=== PATIENT | male | born 1980 | race Caucasian/White ===

== ENCOUNTER 2020-05-28 18:12 | Emergency (ER) | payer OTHER, SELFPAY ==
--- NOTE | ~2020-05-28 | CT_ITS ---
EXAMINATION: CT abdomen pelvis wo con DATE: 05/28/2020 19:16 INDICATION: Right flank pain. TECHNIQUE: Computed tomography (CT) of the abdomen and pelvis was performed without intravenous contr ast. Automated exposure control and iterative reconstruction technique were employed. The dose-length product was 183.63 mGy-cm. COMPARISON: None. FINDINGS: The visualized portions of the lung bases demonstrate mild atelectasis on the right. No ple ural effusion. The heart size is normal. No pericardial effusion. The liver, gallbladder, spleen, [place], and adrenal glands are normal. There are 4 mm and 1 mm stones in right kidney. There is modera te right hydronephrosis and hydroureter. There is a 4 mm stone at right ureterovesicular junction. Th ere is severe atrophy of left kidney. There are no dilated loops of bowel. The appendix is normal. Th ere are no pathologically enlarged lymph nodes. There is no free intraperitoneal fluid. There are thanh ign bone islands in the pelvis and proximal right femur. There is severe lumbar spondylosis. IMPRESSION: 1. 4 mm stone at right ureterovesicular junction with moderate right hydronephrosis and hydroureter. 2. Nonobstructing right kidney stones. 3. Severe left kidney atrophy. Reviewed, dictated and finalized at location A. IMPRESSION: 1. 4 mm stone at right ureterovesicular junction with moderate right hydronephr osis and hydroureter. 2. Nonobstructing right kidney stones. 3. Severe left kidney atrophy.
[2020-05-28 18:15] VITALS: BP 162/86; PULSE 56; RESP 16; TEMP 36.6; O2SAT 100
--- NOTE | 2020-05-28 18:26 | ED.ABDPAIN ---
HPI - Abdominal Pain General Chief Complaint: Abdominal Pain Stated Complaint: ABD pain Time Seen by Provider: 05/28/20 18:26 History of Present Illness HPI narrative: 59-year-old male patient walks into the ER screaming with abdominal pain which he states started about 40 minutes prior to arrival here. The patient localizes the pain to the right flank area and states that it is not radiating. The patient comes in bouts of full intensity . there is no associated nausea or vomiting. The patient is not offering any further history because of the severity of the pain. He states that he is usually in good health and takes no routine medications. Related Data Allergies Allergy/AdvReac Type Severity Reaction Status Date / Time Penicillins Allergy Intermediate Verified 12/23/12 09:35 tramadol Allergy Intermediate Verified 12/23/12 09:35 Review of Systems Review of Systems: All systems reviewed & are unremarkable except as noted in HPI and below PMFSH Past Medical History Medical History (Updated 05/28/20 @ 19:42 by Johanna Garcia MD) No pertinent past medical history Surgical History Surgical History (Updated 05/28/20 @ 19:02 by Johanna Garcia MD) No pertinent past surgical history Social History Social History (Updated 05/28/20 @ 19:03 by Johanna Garcia MD) Smoking packs per day: 1 Smoking cigarettes per day: 20.0 Smoking status: Current every day smoker Alcohol intake: never Substance use: never Living arrangements: with family Exam Const: General: alert Orientation/consciousness: patient oriented x3 Other: Moderate distress from pain. HENMT: Head: normal to inspection Eyes: Pupils: Equal, round and reactive pupils present EOM: EOMs intact bilaterally Resp: Effort & Inspection: normal respiratory effort Auscultation: clear to auscultation bilaterally GI: GI Palp: Yes Soft to palpation and Yes Tenderness to palpation present (GI) (Right flank) : General: Yes CVA tenderness (Right) Skin: General skin exam: normal color Neuro: General: patient oriented x3 and no focal motor deficits Speech: normal speech Gait exam (Neuro): Normal gait present Psych: Affect: Anxious affect present Course Course Emergency Course: patient is resting at this time. He is aware of the CT and the blood test results and discharge plans. The patient does have a 4 mm calculus in the right UV junction area with moderate right hydronephrosis and hydroureter. He has not given us any urine sample. His white cell count is normal without any evidence of elevation on shift. Vital Signs Vital signs: Vital Signs Temperature 36.6 C 05/28/20 18:15 Pulse Rate 56 L 05/28/20 18:15 Respiratory Rate 16 05/28/20 18:15 Blood Pressure 162/86 H 05/28/20 18:15 Pulse Oximetry 100 05/28/20 18:15 Temperature 36.6 C 05/28/20 18:15 Pulse Rate 56 L 05/28/20 18:15 Respiratory Rate 16 05/28/20 18:15 Blood Pressure 162/86 H 05/28/20 18:15 Pulse Oximetry 100 05/28/20 18:15 MDM - Abdominal Pain Lab Data Result diagrams: 05/28/20 19:11 05/28/20 19:11 Labs: Lab Results 05/28/20 05/28/20 Range/Units 19:11 19:11 WBC 7.7 (4.8-10.8) K/mm3 RBC 5.31 (4.70-6.10) M/mm3 Hgb 15.5 (14.0-18.0) g/dL Hct 46.7 (40.0-54.0) % MCV 87.9 (78.0-102.0) fL MCH 29.2 (27.0-31.0) pg MCHC 33.2 (32.0-36.0) g/dL RDW 11.7 (11.6-14.4) % Plt Count 153 (150-420) K/mm3 MPV 11.0 (8.7-11.0) fl Immature Gran % (Auto) 0.3 H (0.0-0.0) % Neut % (Auto) 68.6 (50.0-70.0) % Lymph % (Auto) 23.8 (18.0-42.0) % Wells % (Auto) 4.9 (2.0-11.0) % Eos % (Auto) 2.1 (1.0-6.0) % Baso % (Auto) 0.3 (0.0-1.0) % Lymph # (Auto) 1.83 (1.10-4.50) K/mm3 Wells # (Auto) 0.38 (0.10-0.90) K/mm3 Eos # (Auto) 0.16 (0.02-0.50) K/mm3 Baso # (Auto) 0.02 (0.00-0.10) K/mm3 Abs Immat Gran (auto) 0.02 H (0.00-0.00) K/mm3 Absolute Neuts (auto) 5.
[2020-05-28] MEDS: KETOROLAC 30 MG/ML VIAL (*BKC) IV PUSH (18:34)
[2020-05-28 19:15] LABS: Basophils Absolute Auto 0.02 K/mm3 (0.00-0.10); Basophils Percent Auto 0.3 % (0.0-1.0); Eosinophils Absolute Auto 0.16 K/mm3 (0.02-0.50); Eosinophils Percent Auto 2.1 % (1.0-6.0); Hematocrit 46.7 % (40.0-54.0); Hemoglobin 15.5 g/dL (14.0-18.0); Immature Granulocyte Absolute 0.02 K/mm3 (0.00-0.00); Immature Granulocyte Percent A 0.3 % (0.0-0.0); Lymphocytes Absolute Auto 1.83 K/mm3 (1.10-4.50); Lymphocytes Percent Auto 23.8 % (18.0-42.0); Mean Corpuscular HGB Conc 33.2 g/dL (32.0-36.0); Mean Corpuscular Hemoglobin 29.2 pg (27.0-31.0); Mean Corpuscular Volume 87.9 fL (78.0-102.0); Monocytes Absolute Auto 0.38 K/mm3 (0.10-0.90); Monocytes Percent Auto 4.9 % (2.0-11.0); Neutrophils Absolute Auto 5.3 K/mm3 (1.7-7.2); Neutrophils Percent Auto 68.6 % (50.0-70.0); Platelet Count Result 153 K/mm3 (150-420); Red Blood Count 5.31 M/mm3 (4.70-6.10); Red Cell Distribution Width 11.7 % (11.6-14.4); White Blood Count 7.7 K/mm3 (4.8-10.8)
[2020-05-28 19:27] LABS: Blood Urea Nitrogen 14 mg/dL (7-18); Calcium 8.7 mg/dL (8.5-10.1); Carbon Dioxide 35 mmol/L (21-32); Estimated CRCL calculation 69 ml/min; Estimated Glomerular Filt Rate 55; Glucose 100 mg/dL (70-99)
[2020-05-28 19:39] LABS: Anion Gap 5.2 mmol/L (7-16); Chloride 105 mmol/L (98-108); Osmolality Calculated 292 mOsm/kg (285-295); Potassium 4.2 mmol/L (3.5-5.1); Sodium 141 mmol/L (136-145)
[2020-05-28 20:00] VITALS: RESP 15; O2SAT 100
== END 2020-05-28 20:02 | disposition home or self-care (01) ==
PROVIDERS: Emergency Provider Emergency Medicine
DX: N20.0 Calculus of kidney (principal)
CPT/HCPCS: 36415; 74176; 80048; 85025; 96374; 99283; 99284; A9270; J1885

== ENCOUNTER 2021-03-28 02:42 | Emergency (ER) | payer OTHER, SELFPAY ==
--- NOTE | ~2021-03-28 | CT_ITS ---
EXAMINATION: CT abdomen pelvis wo con DATE: 03/28/2021 03:36 INDICATION: Left flank pain. Kidney stone. TECHNIQUE: Computed tomography (CT) of the abdomen and pelvis was performed without intravenous contr ast. Automated exposure control and iterative reconstruction technique were employed. The dose-length product was 195.71 mGy-cm. COMPARISON: CT abdomen and pelvis 05/28/2020 FINDINGS: The visualized portions of the lung bases demonstrate minimal atelectasis. No pleural effus ion. The heart size is normal. No pericardial effusion. The liver, gallbladder, spleen, pancreas, and adrenal glands are normal. There is severe atrophy of left kidney. There is compensatory hypertrophy of right kidney. There is a 5 mm stone in right kidney. There are two 1 mm stones in right kidney. T here are no dilated loops of bowel. The appendix is normal. There are no pathologically enlarged lymp h nodes. There is no free intraperitoneal fluid. There is a benign bone island in right pelvis. There is severe lumbar spondylosis. IMPRESSION: 1. Nonobstructing right kidney stones. 2. Severe left kidney atrophy. Reviewed, dictated and finalized at location A.
[2021-03-28 02:50] VITALS: BP 107/84; PULSE 81; RESP 20; TEMP 36.3; O2SAT 97
--- NOTE | 2021-03-28 02:53 | ED.ABDPAIN ---
HPI - Abdominal Pain General Source: patient Mode of arrival: ambulatory Limitations: no limitations History of Present Illness HPI narrative: Patient comes in with left flank pain moderately severe, sharp, ongoing he says for the last week. This has not been made better with ibuprofen at home. No fever, no chills. no known precipitating factors. no modifying factors, no other associated signs or symptoms. MD elicited complaint: abdominal pain and flank pain Pertinent past history: kidney stones Onset (ago): day(s) Pain Consistency: constant Location: L flank Severity: severe Quality: stabbing Exacerbating factors: nothing Relieving factors: nothing Associated symptoms: denies other symptoms Treatments prior to arrival: NSAIDs Related Data Home Medications Medication Instructions Recorded Confirmed No Home Medications 03/28/21 03/28/21 Allergies Allergy/AdvReac Type Severity Reaction Status Date / Time Penicillins Allergy Intermediate Verified 12/23/12 09:35 tramadol Allergy Intermediate Verified 12/23/12 09:35 Review of Systems Constitutional: Constitutional: Reports no additional constitutional complaints Eyes: Eyes: Reports no additional eye complaints ENT: Reports system reviewed and no additional complaints, except as documented Cardiovascular: Cardiovascular: Reports no additional cardiovascular complaints Respiratory: Respiratory: Reports no additional respiratory complaints Gastrointestinal: Gastrointestinal: Reports no additional gastrointestinal complaints Genitourinary: Genitourinary: Reports no additional male genitourinary complaints Musculoskeletal: Musculoskeletal: Reports no additional musculoskeletal complaints Integumentary/Breasts: Skin/Breast: Reports system reviewed and no additional complaints, except as docu Neurologic: Reports system reviewed and no additional complaints, except as documented Psychiatric: Psychiatric: Reports no additional psychiatric complaints Endocrine: Endocrine: Reports no additional endocrine complaints Hematologic/Lymphatic: Hematologic/Lymphatic: Reports no additional hematologic/lymphatic complaints Allergic/Immunologic: Allergic/Immunologic: Reports no additional allergic/immunologic complaints [facility] Past Medical History Medical History No pertinent past medical history Surgical History Surgical History No pertinent past surgical history Family History Family History (Updated 03/30/21 @ 03:21 by Charles Wood MD) Other Family history non-contributory Social History Social History Smoking packs per day: 1 Smoking cigarettes per day: 20.0 Smoking status: Current every day smoker Alcohol intake: never Substance use: never Exam Const: General: no acute distress Orientation/consciousness: patient oriented x3 HENMT: Head: normal to inspection Ears: external ears normal General nose exam: Normal external nose present Mouth: Yes Normal oral and palatal mucosa present Throat: posterior oropharynx normal Eyes: Conjunctivae: conjunctivae normal Neck: Neck: normal visual inspection Chest: Chest palpation & inspection: normal inspection of the chest Resp: Effort & Inspection: normal respiratory effort Auscultation: clear to auscultation bilaterally Cardio: Rate: regular rate Rhythm: regular rhythm GI: GI Palp: Yes Soft to palpation (nontender) Back/Spine/Pelvis: Back: no CVA tenderness Neuro: General: patient oriented x3 and moves all extremities Extrem: General: normal to inspection Psych: Appearance: grossly normal Mental Status: mental status grossly normal Thought content: Yes Normal thought content present Course Course Emergency Course: Labs and a CT scan were done to evaluate his left flank pain. CT scan was unremarkable. Labs were also unrem
[2021-03-28 03:07] LABS: Add Urine Microscopic? NO; Appearance Urine Clear (Clear); Bilirubin Urine Negative (Negative); Blood Urine Negative (Negative); Color Urine Yellow (Yellow); Glucose Urine UA Negative (Negative); Ketones Urine Negative (Negative); Leukocyte Esterase Ur Negative LEU/UL (Negative); Nitrate Urine Negative (Negative); Protein Urine Negative (Negative); Urobilinogen Urine 0.2 mg/dL (0.2-1.0)
[2021-03-28 03:08] LABS: Basophils Absolute Auto 0.02 K/mm3 (0.00-0.10); Basophils Percent Auto 0.3 % (0.0-1.0); Eosinophils Absolute Auto 0.26 K/mm3 (0.02-0.50); Eosinophils Percent Auto 3.4 % (1.0-6.0); Hematocrit 43.1 % (40.0-54.0); Hemoglobin 14.1 g/dL (14.0-18.0); Immature Granulocyte Absolute 0.01 K/mm3 (0.00-0.00); Immature Granulocyte Percent A 0.1 % (0.0-0.0); Lymphocytes Absolute Auto 2.54 K/mm3 (1.10-4.50); Mean Corpuscular HGB Conc 32.7 g/dL (32.0-36.0); Mean Corpuscular Volume 88.5 fL (78.0-102.0); Monocytes Absolute Auto 0.73 K/mm3 (0.10-0.90); Monocytes Percent Auto 9.5 % (2.0-11.0); Neutrophils Absolute Auto 4.1 K/mm3 (1.7-7.2); Neutrophils Percent Auto 53.7 % (50.0-70.0); Platelet Count Result 144 K/mm3 (150-420); Red Blood Count 4.87 M/mm3 (4.70-6.10); Red Cell Distribution Width 11.7 % (11.6-14.4); White Blood Count 7.7 K/mm3 (4.8-10.8)
[2021-03-28 03:20] LABS: Alanine Aminotransferase 23 U/L (16-63); Albumin Level 3.6 g/dL (3.4-5.0); Alkaline Phosphatase 73 U/L (46-116); Anion Gap 5 mmol/L (8-16); Aspartate Amino Transferase 15 U/L (15-37); Bilirubin,Total 0.2 mg/dL (0.00-1.00); Blood Urea Nitrogen 18 mg/dL (7-18); Calcium 8.6 mg/dL (8.5-10.1); Carbon Dioxide 34 mmol/L (21-32); Chloride 104 mmol/L (98-108); Estimated CRCL calculation 71 ml/min; Estimated Glomerular Filt Rate 50; Glucose 78 mg/dL (70-99); Lipase 93 U/L (73-393); Osmolality Calculated 296 mOsm/kg (285-295); Potassium 4.1 mmol/L (3.5-5.1); Sodium 143 mmol/L (136-145); Total Protein 6.5 g/dL (6.4-8.2)
== END 2021-03-28 05:00 | disposition home or self-care (01) ==
PROVIDERS: Emergency Provider Emergency Medicine
DX: R10.9 Unspecified abdominal pain (principal)
CPT/HCPCS: 36415; 74176; 80053; 81003; 83690; 85025; 99282; 99284; A9270

== ENCOUNTER 2024-04-08 14:58 | Outpatient (CLI) | payer OTHER, SELFPAY ==
--- NOTE | ~2024-04-08 | US_ITS ---
EXAMINATION: US venous doppler [facility] DATE: 04/08/2024 15:30 INDICATION: N26.1 - Atrophy of kidney (terminal) . TECHNIQUE: Grayscale images without and with compression and Doppler images of the left lower extremi ty veins were obtained. COMPARISON: None FINDINGS: Dilated popliteal and gastrocnemius veins with no flow. Incomplete compressibility of the proximal po sterior tibial vein. The left common femoral vein, profunda (deep) femoral vein, femoral vein, peron eal vein, and greater saphenous vein are patent. IMPRESSION: Acute appearing DVT involving the left popliteal and gastrocnemius veins. Chronic appearing DVT in th e proximal left posterior tibial vein. Reviewed, dictated and finalized at location K. IMPRESSION: Acute appearing DVT involving the left popliteal and gastrocnemius veins. Chron ic appearing DVT in the proximal left posterior tibial vein.
== END 2024-04-08 14:59 | disposition home or self-care (01) ==
LOC: CHSIMG 14:59
PROVIDERS: PCP Family Medicine; Visit Provider Family Medicine
DX: R91.8 Other nonspecific abnormal finding of lung field (principal); G47.419 Narcolepsy without cataplexy; D68.51 Activated protein C resistance; N26.1 Atrophy of kidney (terminal); I82.432 Acute embolism and thrombosis of left popliteal vein; I82.462 Acute embolism and thrombosis of left calf muscular vein; I82.442 Acute embolism and thrombosis of left tibial vein
CPT/HCPCS: 93971

== ENCOUNTER 2024-06-12 11:19 | Outpatient (CLI) | payer OTHER, SELFPAY ==
[2024-06-12 11:36] LABS: Basophils Absolute Auto 0.03 K/mm3 (0.00-0.10); Basophils Percent Auto 0.5 % (0.0-1.0); Eosinophils Absolute Auto 0.18 K/mm3 (0.02-0.50); Eosinophils Percent Auto 2.8 % (1.0-6.0); Hematocrit 41.3 % (40.0-54.0); Hemoglobin 14.4 g/dL (14.0-18.0); Immature Granulocyte Absolute 0.01 K/mm3 (0.00-0.00); Immature Granulocyte Percent A 0.2 % (0.0-0.0); Lymphocytes Absolute Auto 2.37 K/mm3 (1.10-4.50); Lymphocytes Percent Auto 36.5 % (18.0-42.0); Mean Corpuscular HGB Conc 34.9 g/dL (32-36); Mean Corpuscular Hemoglobin 29.6 pg (27.0-31.0); Mean Corpuscular Volume 84.8 fL (78.0-102.0); Monocytes Absolute Auto 0.47 K/mm3 (0.10-0.90); Monocytes Percent Auto 7.2 % (2.0-11.0); Neutrophils Absolute Auto 3.44 K/mm3 (1.70-7.20); Neutrophils Percent Auto 52.8 % (50.0-70.0); Platelet Count Result 165 K/mm3 (150-420); Red Blood Count 4.87 M/mm3 (4.70-6.10); Red Cell Distribution Width 11.7 % (11.6-14.4); White Blood Count 6.5 K/mm3 (4.8-10.8)
[2024-06-12 11:51] LABS: Creatinine Urine 233.93 mg/dL (40-278)
[2024-06-12 12:15] LABS: MALB Creatinine Ratio 170.9 mg/g (0-30); Microalbumin Urine Random > 400.0 mg/L
== END 2024-06-12 11:20 | disposition home or self-care (01) ==
LOC: CHSLAB 11:21
PROVIDERS: PCP Family Medicine; Visit Provider Family Medicine
DX: N26.1 Atrophy of kidney (terminal) (principal); I26.99 Other pulmonary embolism without acute cor pulmonale
CPT/HCPCS: 36415; 82043; 85025